=== PATIENT | male | born 1950 | race Caucasian/White ===

== ENCOUNTER 2017-05-01 09:20 | Inpatient (IN) | payer OTHER ==
[2017-05-01] VITALS (11 sets, daily range): BP systolic 114–172; BP diastolic 56–76; PULSE 60–71; RESP 16–20; TEMP 96.1–99.2; O2SAT 98–100
[~2017-05-01] VITALS: Ht 172.7 cm; Wt 100.0 kg
[2017-05-01] MEDS ORDERED: LANTINJ SQ (09:50)
[2017-05-01] MEDS ORDERED: HYDR50TA94 PO (09:50)
[2017-05-01] MEDS ORDERED: TERA2CAP3 PO (09:50)
[2017-05-01] MEDS ORDERED: SERT1POW3 PO (09:50)
[2017-05-01] MEDS ORDERED: GABA600T PO (09:50)
[2017-05-01] MEDS ORDERED: ALLE10TA PO (09:50)
[2017-05-01] MEDS ORDERED: CYAN100025 SL (09:50)
[2017-05-01] MEDS ORDERED: OMEP20TA PO (09:50)
[2017-05-01] MEDS ORDERED: NOVOINJ3 SQ (09:50)
[2017-05-01] MEDS ORDERED: SILD1POW4 PO (09:50)
[2017-05-01] MEDS ORDERED: SIRO1TAB4 PO (09:50)
[2017-05-01] MEDS ORDERED: LEVO137T2 PO (09:50)
[2017-05-01] MEDS ORDERED: [UNRECOGNIZED DRUG - CODE] PO (09:50)
[2017-05-01] MEDS ORDERED: AMLO5TAB2 PO (09:50)
[2017-05-01] MEDS ORDERED: DOCU100C PO (09:50)
[2017-05-01] MEDS ORDERED: TRAZ1TAB45 PO (09:50)
[2017-05-01] MEDS ORDERED: FLUT50SP EACH NARE (09:50)
[2017-05-01] MEDS ORDERED: LISI-515 PO (09:50)
[2017-05-01] MEDS ORDERED: SODIUM CHLOR 0.9% 1000 ML INJ 1,000 ML IV ONE (10:00)
[2017-05-01] MEDS ORDERED: SODIUM CHLORIDE 0.9% FLUSH 10 ML FLUSH IVF PRN (10:00)
--- NOTE | 2017-05-01 10:01 | PD ---
HPI Chief Complaint: Abnormal Results Time Seen by Provider: 09:42 Travel History International Travel<30 days: No Contact w/Intl Traveler<30days: No Traveled to known affect area: No History of Present Illness HPI Patient is a 66-year-old male with history of chronic alcoholism in remission, depression, SAADIA, history of staph aureus bacteremia, anxiety, Frannie hemorrhagic telangiectasia syndrome, iron deficiency anemia, essential hypertension, hypothyroidism, alcoholic cirrhosis, who sent to the emergency room by [facility] for an multiple complaints. As per patient, he has not been feeling well for the past few days, reports that he is feeling lethargic, dizzy and short of breath. Reports that he had lab work drawn today at the [facility] and was told to go to the emergency room as his hemoglobin was 6.7, hematocrit was 22.5. Patient reports that he has history of AVMs, reports that they need to be intermittently ligated, reports that he usually receives blood transfusions every 4-7 weeks. Patient denies any GI bleeding this time, any abdominal pain, nausea or vomiting. It's that he just has been feeling a little dizzy and short of breath. Reports that he has not having any chest pain this time. Reports that he has been having dyspnea on exertion. Patient is a diabetic currently taking insulin, Lantus and NovoLog, take his diabetic medications today, his blood sugar by EMS was 344. Of note, patient's hvac/r service technician t is Dr. Mcdaniels in [place], patient reports that he had a benign colonoscopy one month ago. Patient with no other complaints at this time. Patient reports that he has not had any alcohol in very long time. PFSH Past Medical History Anemia: Yes High Cholesterol: Yes Cerebrovascular Accident: Yes Diabetes: Yes Patient Takes Glucophage: No Hepatitis: Yes (HEP C) Hypertension: Yes Medical other: Yes (ALCOHOLISM) Thyroid Disease: Yes Tetanus Vaccination: > 5 Years Influenza Vaccination: Yes Past Surgical History Surgical History: No Previous Surgery Hysterectomy: Yes Social History Alcohol Use: No Tobacco Use: No Substance Use: No Allergies-Medications (Allergen,Severity, Reaction): Coded Allergies: Sulfa (Verified Allergy, Severe, FACIAL SWELLING, 05/01/17) Effexor (Verified Allergy, Intermediate, AMS, 05/01/17) HMG-CoA Reductase Inhibitors (Verified Allergy, Intermediate, MUSCLE RIGIDITY, 05/01/17) Reported Meds & Prescriptions Reported Meds & Active Scripts Active Reported Trazodone HCl 150 Mg Tablet 100 Mg PO HS Terazosin (Terazosin HCl) 2 Mg Cap 2 Mg PO HS Sucralfate 1 Pow Pow 500 Mg PO Sirolimus 2 Mg Tab 2 Mg PO DAILY Sildenafil Citrate (Sildenafil Citrate (Bulk)) 1 Pow Pow 100 Mg PO Sertraline HCl (Sertraline HCl (Bulk)) 1 Pow Pow 100 Mg PO DAILY PRN Omeprazole 20 Mg Tab 20 Mg PO DAILY Allergy Relief (Loratadine) 10 Mg Tab 10 Mg PO DAILY Lisinopril 20 Mg Tab 20 Mg PO DAILY Levothyroxine (Levothyroxine Sodium) 137 Mcg Tab 137 Mcg PO DAILY Lantus Solostar Pen Inj (Insulin Glargine) 300 Unit/3 Ml Pen 1 Units SQ Novolog Flexpen Inj (Insulin Aspart) 300 Unit/3 Ml Pen 1 Units SQ Hydroxyzine HCl 50 Mg Tab 50 Mg PO HS Gabapentin 600 Mg Tab 600 Mg PO TID Fluticasone Nasal [place] 50 Mcg/Act Naspr 50 Mcg EACH NARE BID 50 mcg/spray Docusate Sodium 100 Mg Cap 100 Mg PO BID PRN B-12 (Cyanocobalamin) 1,000 Mcg Subl 1,000 Mcg SL DAILY Amlodipine (Amlodipine Besylate) 5 Mg Tab 5 Mg PO DAILY Review of Systems General / Constitutional: No: Fever Eyes: No: Visual changes HENT: Positive: Lightheadedness, No: Headaches Cardiovascular: Positive: Dyspnea on exertion, No: Chest Pain or Discomfort Respiratory: Positive: Shortness of Breath Gastrointestinal: No: Abdominal Pain Genitourinary: No: Dysuria Musculoskeletal: No: Pain Skin: No Rash Neurologic: Positive: Weakness, Dizziness, Ataxia Psychiatric: No: Depression Endocrine: No: Polydipsia Hematologic/Lymphatic: No: Easy Bruising Physical Exam Narrative GENERAL: moderate distress SKIN: Focused skin assessment warm/dry. HEAD: Atraumatic. Normocephalic. EYES: Pupils equal and round. No scleral icterus. No injection or drainage. ENT: No nasal bleeding or discharge. Mucous membranes pink and moist. NECK: Trachea midline. No JVD. CARDIOVASCULAR: Regular rate and rhythm. No murmur appreciated. RESPIRATORY: No accessory muscle use. Clear to auscultation. Breath sounds equal bilaterally. GASTROINTESTINAL: Abdomen soft, non-tender, nondistended. Hepatic and splenic margins not palpable. MUSCULOSKELETAL: No obvious deformities. No clubbing. No cyanosis. No edema. NEUROLOGICAL: Awake and alert. No obvious cranial nerve deficits. Motor grossly within normal limits. Normal speech. PSYCHIATRIC: Appropriate mood and affect; insight and judgment normal. Data Data Last Documented VS Vital Signs Date Time Temp Pulse Resp B/P Pulse Ox O2 Delivery O2 Flow Rate FiO2 05/01/17 10:01 18 99 Room Air 05/01/17 09:35 71 139/67 05/01/17 09:28 99.2 Orders Electrocardiogram (05/01/17 09:50) B-Type Natriuretic Peptide (05/01/17 09:50) Ckmb (Isoenzyme) Profile (05/01/17 09:50) Complete Blood Count With Diff (05/01/17 09:50) Comprehensive Metabolic Panel (05/01/17 09:50) Magnesium (Mg) (05/01/17 09:50) Prothrombin Time / Inr (Pt) (05/01/17 09:50) Act Partial Throm Time (Ptt) (05/01/17 09:50) Troponin I (05/01/17 09:50) Lipase (05/01/17 09:50) Chest, Single Ap (05/01/17 09:50) Ecg Monitoring (05/01/17 09:50) Iv Access Insert/Monitor (05/01/17 09:50) Oximetry (05/01/17 09:50) Sodium Chloride 0.9% Flush (Ns Flush) (05/01/17 10:00) Type And Screen (05/01/17 09:50) Bedside Glucose CIELO.AC&HS (05/01/17 09:50) Sodium Chlor 0.9% 1000 Ml Inj (Ns 1000 M (05/01/17 10:00) Ct Brain W/O Iv Contrast(Rout) (05/01/17 09:50) MDM Medical Decision Making Medical Screen Exam Complete: Yes Emergency Medical Condition: Yes Interpretation(s) EKG at 1011: NSR at 64bpm, qt/qtc: 427/437, no acute st or t wave changes Vital Signs Date Time Temp Pulse Resp B/P Pulse Ox O2 Delivery O2 Flow Rate FiO2 05/01/17 09:35 71 18 139/67 99 Room Air 05/01/17 09:35 72 18 99 Room Air 05/01/17 09:28 99.2 71 18 139/67 100 Differential Diagnosis Symptomatic anemia, ACS, arrhythmia, GI bleed, electrolyte abnormality Narrative Course Patient is a 66-year-old male sent to the emergency room from the [facility] for treatment of low hemoglobin. Patient has not been feeling well for the past few days, he did have lab work performed at the [facility] and was found to have a hemoglobin of 6.7 hematocrit of 22.5. Reports that he received blood products every 4-7 weeks, reports history of avm's in the past. Patient denies any blood in his stools. Patient is here for blood transfusion. In addition, patient reports that he has not been feeling well, reports that he isn't feeling lethargic, dizzy and unstable on his feet, lab work including electrolytes ordered, and ct of the head was ordered to evaluate for possible intracranial pathology. Patient was placed on a groundwater monitoring technician upon arrival to the emergency room Annabelle Case DO May 01, 2017 10:01
[2017-05-01 10:18] LABS: AUTOMATED NEUTROPHIL # 1.7 TH/MM3 (1.8-7.7); BASOPHIL # 0.1 TH/MM3 (0-0.2); BASOPHIL % 2.1 % (0.0-2.0); EOSINOPHIL # 0.2 TH/MM3 (0-0.4); EOSINOPHIL % 5.5 % (0.0-4.0); LYMPH % 30.9 % (9.0-44.0); MEAN CELL VOLUME 62.4 FL (80.0-100.0); MEAN CORPUSCULAR HEMOGLOBIN 19.6 PG (27.0-34.0); MEAN CORPUSCULAR HGB CONC 31.4 % (32.0-36.0); MONO % 8.6 % (0.0-8.0); NEUT % 52.9 % (16.0-70.0); PLATELET COUNT 245 TH/MM3 (150-450); RED BLOOD COUNT 3.24 MIL/MM3 (4.50-5.90); RED CELL DISTRIBUTION WIDTH 22.3 % (11.6-17.2); WHITE BLOOD COUNT 3.2 TH/MM3 (4.0-11.0)
[2017-05-01 10:20] LABS: HEMO FLAGS DIFF FINAL
[2017-05-01 10:22] LABS: HEMATOCRIT 20.2 % (39.0-51.0)
[2017-05-01 10:29] LABS: APTT (PATIENT) 22.9 SEC (24.3-30.1); PROTHROMBIN TIME - PATIENT 10.6 SEC (9.8-11.6)
[2017-05-01] MEDS ORDERED: LORazepam 2 MG/ML VIAL IV PUSH ONE (10:30)
[2017-05-01] MEDS ORDERED: SODIUM CHLOR 0.9% 250 ML INJ 250 ML IV ONE (10:30)
[2017-05-01 10:45] LABS: ANION GAP 6 MEQ/L (5-15); BICARBONATE 27.5 MEQ/L (21.0-32.0); BLOOD UREA NITROGEN 18 MG/DL (7-18); CHLORIDE 102 MEQ/L (98-107); MAGNESIUM 1.5 MG/DL (1.5-2.5); POTASSIUM 4.1 MEQ/L (3.5-5.1); SODIUM (NA) 135 MEQ/L (136-145)
--- NOTE | 2017-05-01 10:52 | RADRPT ---
EXAM DATE/TIME: 05/01/2017 10:09 [facility] COMPARISON: No previous studies available for comparison. INDICATIONS : Short of breath. Disoriented and dizzy. MEDICAL HISTORY : Anemia. SURGICAL HISTORY : None. ENCOUNTER: Initial ACUITY: 4 - 6 days PAIN SCORE: 0/10 LOCATION: Bilateral chest FINDINGS: A single view of the chest demonstrates the lungs to be symmetrically aerated without evidence of mas s, infiltrate or effusion. The cardiomediastinal contours are unremarkable. Osseous structures are intact. CONCLUSION: 1. Negative portable chest. Newton Harvey MD on May 01, 2017 at 10:48 Board Certified Radiologist. This report was verified electronically.
[2017-05-01 11:20] LABS: AST (GOT) 16 U/L (15-37); GLOMERULAR FILTRATION RATE 85 ML/MIN (>89)
[2017-05-01 11:36] LABS: ALKALINE PHOSPHATASE 79 U/L (45-117); ALT (GPT) 21 U/L (12-78); CREATINE KINASE 187 U/L (39-308); TOTAL BILIRUBIN ADULT 0.1 MG/DL (0.2-1.0)
[2017-05-01 11:48] LABS: CKMB 46.2 NG/ML (0.5-3.6)
[2017-05-01] MEDS ORDERED: SODIUM CHLORIDE 0.9% FLUSH 10 ML FLUSH IV FLUSH PRN (12:30)
[2017-05-01] MEDS ORDERED: GLUCAGON 1 MG/ML VIAL OTHER PRN (12:30)
[2017-05-01] MEDS ORDERED: DEXTROSE 50% IN WATER 50 ML VIAL(D50) IV PRN (12:30)
[2017-05-01] MEDS ORDERED: RESP: ALBUTEROL 2.5 MG/IPRATROPIUM 0.5 MG NEB (PRN) NEB (12:30)
[2017-05-01] MEDS ORDERED: ENALAPRILAT 1.25 MG/ML VIAL IV PUSH PRN (12:30)
[2017-05-01] MEDS ORDERED: ONDANSETRON HCL 4 MG/2 ML VIAL IV PRN (12:30)
[2017-05-01] MEDS: PANTOPRAZOLE SODIUM 40 MG VIAL IV PUSH SCH (12:35)
--- NOTE | 2017-05-01 12:52 | RADRPT ---
EXAM DATE/TIME: 05/01/2017 12:36 [facility] COMPARISON: No previous studies available for comparison. INDICATIONS : Shortness of breath, lethargy, dizziness. RADIATION DOSE: 56.35 CTDIvol (mGy) MEDICAL HISTORY : Hypertension. Cerebrovascular disease. Diabetes mellitus type 2.Hepatitis C SURGICAL HISTORY : None. ENCOUNTER: Initial ACUITY: 1 day PAIN SCALE: 0/10 LOCATION: cranial TECHNIQUE: Multiple contiguous axial images were obtained of the head. Using automated exposure control and adj ustment of the mA and/or kV according to patient size, radiation dose was kept as low as reasonably a chievable to obtain optimal diagnostic quality images. FINDINGS: CEREBRUM: The ventricles are normal for age. There are areas of encephalomalacia at the posterior right frontal and right parietal lobes. No evidence of midline shift, mass lesion, hemorrhage or acute infarction. No extra-axial fluid collections are seen. POSTERIOR FOSSA: The cerebellum and brainstem are intact. The 4th ventricle is midline. The cerebellopontine angle i s unremarkable. EXTRACRANIAL: The visualized portion of the orbits is intact. There is bilateral maxillary sinus disease. There is scattered ethmoid sinus disease. There is mucosal thickening at the left sphenoid sinus. SKULL: The calvaria is intact. No evidence of skull fracture. CONCLUSION: 1. No acute intracranial abnormality. 2. Areas of encephalomalacia from prior insults at the right frontal and parietal lobes. 3. Sinus disease. Jenaro Schroeder MD on May 01, 2017 at 12:49 Board Certified Radiologist. This report was verified electronically.
--- NOTE | 2017-05-01 13:04 | PD.CONS ---
HPI History of Present Illness This is a 66 year old who presented to the ER with anemia. He recently had labwork and they sent him to ER. He had been feeling poorly, altered balance, somnolence, fatigue for the last 4 days. This has happened 3 or 4 times before. He admits to abdominal pain for the last 4 days, in the LLQ & RLQ. He also admits diarrhea for a couple days 2 x day that was dark but not black. Denies dark tarry stool but per EMR was found on rectal exam to have melena and heme pos stool. Has hx AVMs. Says he has had to have many blood transfusions in past, 22 units in the last year. NO n/v. NO weight loss. Past heavy drinker , has not drank in 2 years. (Aleisha Currie) PFSH Past Medical History DM HTN hx sepsis Past Surgical History port placement port removal (Aleisha Currie) Coded Allergies: Sulfa (Verified Allergy, Severe, FACIAL SWELLING, 05/01/17) Effexor (Verified Allergy, Intermediate, AMS, 05/01/17) HMG-CoA Reductase Inhibitors (Verified Allergy, Intermediate, MUSCLE RIGIDITY, 05/01/17) Family History heart valve problems - father Social History former heavy drinker, no ETOH 2 y no tobacco, illicit drugs (Aleisha Currie) Review of Systems Constitutional: DENIES: Fever Eyes: DENIES: Blurred vision Ears, nose, mouth, throat: DENIES: Hearing loss Respiratory: DENIES: Cough Cardiovascular: DENIES: Chest pain Gastrointestinal: COMPLAINS OF: Abdominal pain, Diarrhea, DENIES: Black stools , Bloody stools, Constipation, Nausea, Vomiting, Anorexia, Hematemesis Genitourinary: DENIES: Hematuria Musculoskeletal: DENIES: Muscle aches Integumentary: DENIES: Rash Hematologic/lymphatic: DENIES: Bruising Neurologic: COMPLAINS OF: Abnormal gait (last 4 days, weakness) Psychiatric: COMPLAINS OF: Confusion (last 4 days) (Aleisha Currie) GI Exam Vitals I&O Vital Signs Date Time Temp Pulse Resp B/P Pulse Ox O2 Delivery O2 Flow Rate FiO2 05/01/17 11:46 64 16 142/62 100 05/01/17 10:36 69 18 154/67 99 Room Air 05/01/17 10:01 18 99 Room Air 05/01/17 09:35 71 18 139/67 99 Room Air 05/01/17 09:35 72 18 99 Room Air 05/01/17 09:28 99.2 71 18 139/67 100 Imaging Last Impressions Head CT 05/01/17 0950 Signed Impressions: Service Date/Time: Monday, May 01, 2017 12:36 - CONCLUSION: 1. No acute intracranial abnormality. 2. Areas of encephalomalacia from prior insults at the right frontal and parietal lobes. 3. Sinus disease. Jenaro Schroeder MD Chest X-Ray 05/01/1750 Signed Impressions: Service Date/Time: Monday, May 01, 2017 10:09 - CONCLUSION: 1. Negative portable chest. Newton Harvey MD Laboratory Test 05/01/17 05/01/17 05/01/17 10:00 10:24 11:09 White Blood Count 3.2 TH/MM3 Red Blood Count 3.24 MIL/MM3 Hemoglobin 6.4 GM/DL Hematocrit 20.2 % Mean Corpuscular Volume 62.4 FL Mean Corpuscular Hemoglobin 19.6 PG Mean Corpuscular Hemoglobin 31.4 % Concent Red Cell Distribution Width 22.3 % Platelet Count 245 TH/MM3 Mean Platelet Volume 8.4 FL Neutrophils (%) (Auto) 52.9 % Lymphocytes (%) (Auto) 30.9 % Monocytes (%) (Auto) 8.6 % Eosinophils (%) (Auto) 5.5 % Basophils (%) (Auto) 2.1 % Neutrophils # (Auto) 1.7 TH/MM3 Lymphocytes # (Auto) 1.0 TH/MM3 Monocytes # (Auto) 0.3 TH/MM3 Eosinophils # (Auto) 0.2 TH/MM3 Basophils # (Auto) 0.1 TH/MM3 CBC Comment DIFF FINAL Differential Comment Prothrombin Time 10.6 SEC Prothromb Time International 1.0 RATIO Ratio Activated Partial 22.9 SEC Thromboplast Time Sodium Level 135 MEQ/L Potassium Level 4.1 MEQ/L Chloride Level 102 MEQ/L Carbon Dioxide Level 27.5 MEQ/L Anion Gap 6 MEQ/L Blood Urea Nitrogen 18 MG/DL Creatinine 0.90 MG/DL Estimat Glomerular Filtration 85 ML/MIN Rate Random Glucose 180 MG/DL Calcium Level 8.5 MG/DL Magnesium Level 1.5 MG/DL Total Bilirubin 0.1 MG/DL Aspartate Amino Transf 16 U/L (AST/SGOT) Alanine Aminotransferase 21 U/L (ALT/SGPT) Alkaline Phosphatase 79 U/L Total Creatine Kinase 187 U/L Creatine Kinase MB 46.2 NG/ML Troponin I LESS THAN 0.02 NG/ML B-Type Natriuretic Peptide 57 PG/ML Total Protein 6.4 GM/DL Albumin 3.0 GM/DL Lipase 134 U/L Blood Type B POSITIVE B POSITIVE Antibody Screen NEGATIVE Blood Bank Comment Crossmatch Leukocyte-Reduced Red Blood Cells Physical Examination HEENT: EOMI; normocephalic; atraumatic; no jaundice. CHEST: CTA CARDIAC: RRR ABDOMEN: Soft, protuberant, tympanitic, diffuse TTP; no hepatosplenomegaly; bowel sounds are present in all four quadrants. EXTREMITIES: No clubbing, cyanosis, or edema. SKIN: generalized pallor; no rash; no jaundice. 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 Had colonoscopy 6 weeks ago, normal per pt. Hx AVMs, multiple blood transfusions, ETOH abuse. will do EGD - abdominal pain - onset 4 day ago, pt c/o pain in all 4 quadrants and had TTP diffusely. unclear etiology, will get CT abd PLAN - EGD in am - obtain consents - NPO for now - CT abd - monitor HH - transfuse prn - further recommendations to follow based on results above This pt seen by myself and Dr Curry and this note is written on his behalf ( Aleisha Currie) Physician Comments As above, recurrent GI bleeding secondary to AVM's, will check CT finding and possible EGD, if all negative, double balloon endoscopy. Will follow up with you. (Patricia Curry MD) Aleisha Currie May 01, 2017 13:04 Patricia Curry MD May 01, 2017 14:14
--- NOTE | 2017-05-01 13:30 | HHI.HP ---
HPI [facility] Primary Care Physician No Primary Care Physician Admission Diagnosis Symptomatic anemia Diagnoses: (1) Symptomatic anemia (2) Microcytic hypochromic anemia (3) Anemia due to blood loss (4) Diabetes mellitus, type 2 (5) Ataxia Chief Complaint: abnormal labs Travel History International Travel<30 Days: No Contact w/Intl Traveler <30 Da: No Traveled to Known Affected Are: No History of Present Illness 66-year-old male with a history of diabetes type 2, hepatitis C, anemia requiring frequent blood transfusions was sent to the ED by [facility] PCP [facility] the [facility] for evaluation of abnormal lab including H&H 6.7/.5. He states, over the past 4 days he has been feeling fatigued lately with increasing somnolence, lethargy and very poor balance. He currently admits of diarrhea 2 days described as dark and patient was found to have melena on Hemoccult test in the ED. Patient states he usually gets blood transfusion every 7 weeks. He states , he had a recent benign colonoscopy. He denies any hematuria, hemoptysis or hematochezia. Although patient complains of abdominal pain and he denies any chest pain or significant shortness of breath. Review of Systems Except as stated in HPI: all other systems reviewed are Neg Past Family Social History Past Medical History Diabetes type 2 Hypertension Hepatitis C Hypothyroidism Diabetic neuropathy Anxiety/depression Past Surgical History Port placement and removal Reported Medications Trazodone HCl 150 Mg Tablet 100 Mg PO HS Terazosin (Terazosin HCl) 2 Mg Cap 2 Mg PO HS Sucralfate 1 Pow Pow 500 Mg PO Sirolimus 2 Mg Tab 2 Mg PO DAILY Sildenafil Citrate (Sildenafil Citrate (Bulk)) 1 Pow Pow 100 Mg PO Sertraline HCl (Sertraline HCl (Bulk)) 1 Pow Pow 100 Mg PO DAILY PRN Omeprazole 20 Mg Tab 20 Mg PO DAILY Allergy Relief (Loratadine) 10 Mg Tab 10 Mg PO DAILY Lisinopril 20 Mg Tab 20 Mg PO DAILY Levothyroxine (Levothyroxine Sodium) 137 Mcg Tab 137 Mcg PO DAILY Lantus Solostar Pen Inj (Insulin Glargine) 300 Unit/3 Ml Pen 1 Units SQ Novolog Flexpen Inj (Insulin Aspart) 300 Unit/3 Ml Pen 1 Units SQ Hydroxyzine HCl 50 Mg Tab 50 Mg PO HS Gabapentin 600 Mg Tab 600 Mg PO TID Fluticasone Nasal [place] 50 Mcg/Act Naspr 50 Mcg EACH NARE BID 50 mcg/spray Docusate Sodium 100 Mg Cap 100 Mg PO BID PRN B-12 (Cyanocobalamin) 1,000 Mcg Subl 1,000 Mcg SL DAILY Amlodipine (Amlodipine Besylate) 5 Mg Tab 5 Mg PO DAILY Allergies: Coded Allergies: Sulfa (Verified Allergy, Severe, FACIAL SWELLING, 05/01/17) Effexor (Verified Allergy, Intermediate, AMS, 05/01/17) HMG-CoA Reductase Inhibitors (Verified Allergy, Intermediate, MUSCLE RIGIDITY, 05/01/17) Family History heart valve problems - father Maternal grandma had history of cancer Social History former heavy drinker, no ETOH 2 y no tobacco, illicit drugs Physical Exam Vital Signs Vital Signs Date Time Temp Pulse Resp B/P Pulse Ox O2 Delivery O2 Flow Rate FiO2 05/01/17 13:26 97.9 60 18 141/63 98 Room Air 05/01/17 13:26 97.9 60 20 141/63 98 Room Air 05/01/17 11:46 64 16 142/62 100 05/01/17 10:36 69 18 154/67 99 Room Air 05/01/17 10:01 18 99 Room Air 05/01/17 09:35 71 18 139/67 99 Room Air 05/01/17 09:35 72 18 99 Room Air 05/01/17 09:28 99.2 71 18 139/67 100 Physical Exam GENERAL: This is a well-nourished, well-developed patient, in no apparent distress. SKIN: No rashes, ecchymoses or lesions. Cool and dry. HEAD: Atraumatic. Normocephalic. No temporal or scalp tenderness. EYES: Pupils equal round and reactive. Extraocular motions intact. No scleral icterus. No injection or drainage. ENT: Nose without bleeding, purulent drainage or septal hematoma. Throat without erythema, tonsillar hypertrophy or exudate. Uvula midline. Airway patent. NECK: Trachea midline. No JVD or lymphadenopathy. Supple, nontender, no meningeal signs. CARDIOVASCULAR: Regular rate and rhythm without murmurs, gallops, or rubs. RESPIRATORY: Clear to auscultation. Breath sounds equal bilaterally. No wheezes , rales, or rhonchi. GASTROINTESTINAL: Abdomen soft, non-tender, nondistended. No hepato-splenomegaly , or palpable masses. No guarding. MUSCULOSKELETAL: Extremities without clubbing, cyanosis, or edema. No joint tenderness, effusion, or edema noted. No calf tenderness. Negative Homans sign bilaterally. NEUROLOGICAL: Awake and alert. Cranial nerves II through XII intact. Motor and sensory grossly within normal limits. Five out of 5 muscle strength in all muscle groups. Normal speech. Laboratory Laboratory Tests Test 05/01/17 05/01/17 05/01/17 10:00 10:24 11:09 White Blood Count 3.2 Red Blood Count 3.24 Hemoglobin 6.4 Hematocrit 20.2 Mean Corpuscular Volume 62.4 Mean Corpuscular Hemoglobin 19.6 Mean Corpuscular Hemoglobin 31.4 Concent Red Cell Distribution Width 22.3 Platelet Count 245 Mean Platelet Volume 8.4 Neutrophils (%) (Auto) 52.9 Lymphocytes (%) (Auto) 30.9 Monocytes (%) (Auto) 8.6 Eosinophils (%) (Auto) 5.5 Basophils (%) (Auto) 2.1 Neutrophils # (Auto) 1.7 Lymphocytes # (Auto) 1.0 Monocytes # (Auto) 0.3 Eosinophils # (Auto) 0.2 Basophils # (Auto) 0.1 CBC Comment DIFF FINAL Differential Comment Prothrombin Time 10.6 Prothromb Time International 1.0 Ratio Activated Partial 22.9 Thromboplast Time Sodium Level 135 Potassium Level 4.1 Chloride Level 102 Carbon Dioxide Level 27.5 Anion Gap 6 Blood Urea Nitrogen 18 Creatinine 0.90 Estimat Glomerular Filtration 85 Rate Random Glucose 180 Calcium Level 8.5 Magnesium Level 1.5 Total Bilirubin 0.1 Aspartate Amino Transf 16 (AST/SGOT) Alanine Aminotransferase 21 (ALT/SGPT) Alkaline Phosphatase 79 Total Creatine Kinase 187 Creatine Kinase MB 46.2 Troponin I LESS THAN 0.02 B-Type Natriuretic Peptide 57 Total Protein 6.4 Albumin 3.0 Lipase 134 Blood Type B POSITIVE B POSITIVE Antibody Screen NEGATIVE Blood Bank Comment Crossmatch Leukocyte-Reduced Red Blood Cells Result Diagram: 05/01/17 1000 05/01/17 1000 Assessment and Plan Problem List: (1) Symptomatic anemia ICD Code: D64.9 Status: Acute (2) Microcytic hypochromic anemia ICD Code: D50.9 Status: Acute (3) Anemia due to blood loss ICD Code: D50.0 Status: Acute (4) Ataxia ICD Code: R27.0 Status: Acute Assessment and Plan 66-year-old man with Symptomatic anemia Microcytic hypochromic anemia Anemia due to blood loss Transfuse 2 units packed red blood cell and serial H&H check Consult gastroenterology for evaluation for possible panendoscopy Start PPI 40 mg IV every 12 hours Check iron study and treat accordingly Ataxia Head CT pending PT consult Diabetes type 2 Start insulin sliding scale medium and hold home medications Hypertension Resume outpatient medications including Norvasc Hypothyroidism, anxiety/depression/diabetic neuropathy and other chronic medical conditions Resume outpatient medications DVT prophylaxis: Chemical anti-prophylactic contraindicated due to GI bleed, bilateral SCDs GI prophylaxis: PPI Code Status Full code Discussed Condition With Patient, ED physician Physician Certification 2 Midnight Certification Type: Admission for Inpatient Services Order for Inpatient Services The services are ordered in accordance with Medicare regulations or non- Medicare payer requirements, as applicable. In the case of services not specified as inpatient-only, they are appropriately provided as inpatient services in accordance with the 2-midnight benchmark. Estimated LOS (days): 2 days is the estimated time the patient will need to remain in the hospital, assuming treatment plan goals are met and no additional complications. Post-Hospital Plan: Not yet determined Dillon Freeman MD May 01, 2017 13:30
[2017-05-01] MEDS ORDERED: DIATRIZOATE MEGLUM/DIATRIZOATE SOD 9 ML CUP PO ONE (14:00)
[2017-05-01 15:29] LABS: TRANSFERRIN IRON PROFILE 229 MG/DL (200-360)
[2017-05-01] MEDS ORDERED: IOHEXOL 350 MG/ML 10 ML VIAL (for RAD DIAG) IV ONE (15:37)
--- NOTE | 2017-05-01 17:07 | RADRPT ---
EXAM DATE/TIME: 05/01/2017 15:32 [place] COMPARISON: No previous studies available for comparison. INDICATIONS : Patient complains of lower abdominal pain. IV CONTRAST: 94 cc Omnipaque 350 (iohexol) IV ORAL CONTRAST: No oral contrast ingested. RADIATION DOSE: 10.83 CTDIvol (mGy) MEDICAL HISTORY : Cardiovascular disease. Hypertension. Diabetes mellitus type 1.HEP C SURGICAL HISTORY : None. ENCOUNTER: Initial ACUITY: 1 day PAIN SCALE: 7/10 LOCATION: Bilateral lower quadrant TECHNIQUE: Volumetric scanning of the abdomen and pelvis was performed. Using automated exposure control and ad justment of the mA and/or kV according to patient size, radiation dose was kept as low as reasonably achievable to obtain optimal diagnostic quality images. FINDINGS: LOWER LUNGS: Mild patchy opacity at the right lung base, likely representing atelectasis or minimal inflammatory c hange. LIVER: Linear hypodensities in the left lobe suggesting mild intrahepatic biliary ductal dilatation or perip ortal edema. Mild focal nodularity of the liver capsule indicating possible early findings of cirrhos is. No focal mass identified. SPLEEN: Normal size without lesion. PANCREAS: Within normal limits. KIDNEYS: Normal in size and shape. There is no mass, stone or hydronephrosis. ADRENAL GLANDS: Within normal limits. VASCULAR: Diffuse arterial calcification. Aortic diameter within normal limits. BOWEL/MESENTERY: Scattered colonic diverticula. No inflammatory changes to suggest acute diverticulitis. Appendix is w ithin normal limits. No evidence of bowel dilatation. No free air or free fluid. ABDOMINAL WALL: Within normal limits. RETROPERITONEUM: There is no lymphadenopathy. BLADDER: Moderately distended. REPRODUCTIVE: Within normal limits. INGUINAL: There is no lymphadenopathy or hernia. MUSCULOSKELETAL: Degenerative findings of the lower lumbar spine. CONCLUSION: 1. Colonic diverticulosis. No evidence of acute diverticulitis. 2. Moderately distended urinary bladder. 3. Appendix within normal limits. 4. Possible early findings of cirrhosis. 5. Mild left lobe intrahepatic biliary ductal dilatation versus periportal edema. Surinder Cisneros MD on May 01, 2017 at 16:58 Board Certified Radiologist. This report was verified electronically.
[2017-05-01] MEDS: INSULIN ASPART SUPPLEMENTAL SCALE SQ SCH ×2 (17:44→21:33)
[2017-05-01 19:47] LABS: HEMATOCRIT 26.3 % (39.0-51.0)
[2017-05-01 19:50] LABS: REVIEW FLAG FINAL
[2017-05-01] MEDS: MORPHINE SULFATE 4 MG/ML INJ IV PUSH PRN (21:32)
[2017-05-01] MEDS: SODIUM CHLORIDE 0.9% FLUSH 10 ML FLUSH IV FLUSH SCH (21:33)
[2017-05-02] VITALS (9 sets, daily range): BP systolic 128–180; BP diastolic 60–77; PULSE 60–87; RESP 18–19; TEMP 96.7–97.2; O2SAT 93–99
[2017-05-02] MEDS: PANTOPRAZOLE SODIUM 40 MG VIAL IV PUSH SCH ×2 (01:12→13:38)
[2017-05-02] MEDS: MORPHINE SULFATE 4 MG/ML INJ IV PUSH PRN ×4 (03:38→23:06)
[2017-05-02] MEDS: LEVOTHYROXINE SODIUM 112 MCG TAB PO SCH (05:24)
[2017-05-02] MEDS: INSULIN ASPART SUPPLEMENTAL SCALE SQ SCH ×4 (05:24→21:00)
[2017-05-02] MEDS: LEVOTHYROXINE SODIUM 25 MCG TAB PO SCH (05:24)
[2017-05-02] MEDS ORDERED: SODIUM CHLORID 0.9% 500 ML IV PRN (06:15)
[2017-05-02] MEDS ORDERED: POVIDONE IODINE 5% (ANTISEPSIS KIT) 4 APPLICATIONS EACH NARE PRN (06:15)
[2017-05-02] MEDS ORDERED: LACTATED RINGER'S 1000 ML IV PRN (06:15)
[2017-05-02] MEDS ORDERED: CHLORHEXIDINE GLUCONATE 2 % 1 PACK (2 CLOTHS) TOPICAL PRN (06:15)
[2017-05-02 08:12] LABS: HEMATOCRIT 26.8 % (39.0-51.0)
[2017-05-02 08:27] LABS: REVIEW FLAG FINAL
[2017-05-02] MEDS: SODIUM CHLORIDE 0.9% FLUSH 10 ML FLUSH IV FLUSH SCH ×2 (08:35→23:05)
[2017-05-02] MEDS ORDERED: amLODIPine BESYLATE 5 MG TAB PO SCH (09:00)
[2017-05-02] MEDS ORDERED: PROPOFOL 200 MG/20 ML AMP IV ONE (11:05)
--- NOTE | 2017-05-02 11:31 | GIPROC ---
[facility] [address] [facility]. [facility], [address] EGD PROCEDURE REPORT EXAM DATE: 05/02/2017 PATIENT NAME: Hipolito Gonzalez MR #: [id number] BIRTHDATE: 1950 ATTENDING: Patricia Curry MD ORDER #: [id number] PHYSICAL SCIENCES INSTRUCTOR: Feliciano Figueredo and Vandana Sharma STATUS: inpatient INDICATIONS: The patient is a 66 yr old male here for an EGD due to anemia PROCEDURE PERFORMED: EGD w/ ablation MEDICATIONS: None and Per Anesthesia. TOPICAL ANESTHETIC: none CONSENT: The patient understands the risks and benefits of the procedure and understands that these risks include, but are not limited to: sedation, allergic reaction, infection, perforation and/or bleeding. Alternative means of evaluation and treatment include, among others: physical exam, x-rays, and/or surgical intervention. The patient elects to proceed with this endoscopic procedure. medical equipment was checked for proper function. Hand hygiene and appropriate measures for infection prevention was taken. After the risks, benefits and alternatives of the procedure were thoroughly explained, Informed consent was verified, confirmed and timeout was successfully executed by the treatment team. The patient was anesthetized with topical anesthesia and the Pentax EG-[id number] and [id number] endoscope was introduced through the mouth and advanced to the second portion of the duodenum. Retroflexion was performed and was normal The gastroscope was then slowly withdrawn and removed. ESOPHAGUS: The esophagus was otherwise normal. 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 Argon plasma coagulation was applied to the sites. With complete hemostasis achieved. DUODENUM: An innumerable number of small medium sized round arteriovenous malformations were found in the duodenal bulb, 2nd part duodenum, and 3rd part duodenum. Argon plasma coagulation was applied to the sites. With complete hemostasis achieved. ADVERSE EVENTS: There were no complications. IMPRESSIONS: 1. The esophagus was otherwise normal 2. 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 Innumerable number of small medium sized arteriovenous malformations were found in the duodenal bulb, 2nd part duodenum, and 3rd part duodenum; Argon plasma coagulation was applied to the sites; with complete hemostasis achieved 4. Retroflexion was performed and was normal RECOMMENDATIONS: Hematocrit PATIENT CONDITION: stable DISPOSITION: Observation REPEAT EXAM: Return as needed for EGD Patricia Curry MD eSigned: Patricia Curry MD 05/02/2017 11:30 AM cc: PATIENT NAME: Hipolito Gonzalez MR#: [id number]
--- NOTE | 2017-05-02 12:08 | EKG ---
Date Performed: 05/01/2017 Time Performed: 10:11:15 PTAGE: 66 years EKG: Sinus rhythm NORMAL ECG NO PREVIOUS TRACING DOCTOR: Elian Farmer Interpretating Date/Time 05/02/2017 12:06:49
[2017-05-02] MEDS ORDERED: DO NOT ADM ANY ANTICOAGULANT DRUGS PRN (13:00)
[2017-05-02] MEDS ORDERED: amLODIPine BESYLATE 5 MG TAB PO ONE (13:30)
[2017-05-02] MEDS ORDERED: GABAPENTIN 300 MG CAP PO ONE (13:45)
--- NOTE | 2017-05-02 16:02 | HHI.PR ---
Subjective Remarks feeling ok, had EGD this afternoon. tells me that he has neuropathy that's why he was requesting his gabapentin to be restarted denies any CP/SOB/N/V Objective Vitals Vital Signs Date Time Temp Pulse Resp B/P Pulse Ox O2 Delivery O2 Flow Rate FiO2 05/02/17 14:00 18 05/02/17 13:35 160/70 05/02/17 12:39 97.0 68 19 180/77 99 05/02/17 11:50 87 05/02/17 11:49 98.0 67 18 115/64 96 05/02/17 11:38 65 18 103/56 96 05/02/17 11:23 97.8 74 18 105/55 93 05/02/17 10:35 96.7 60 19 167/76 99 05/02/17 08:47 96.7 60 19 167/76 99 05/02/17 00:00 97.0 63 18 143/73 97 05/01/17 20:00 96.8 61 20 172/70 98 05/01/17 16:48 96.1 61 17 158/70 99 I/O 05/01/17 05/01/17 05/01/17 05/02/17 05/02/17 05/02/17 07:00 15:00 23:00 07:00 15:00 23:00 Output Total 600 ml 2000 ml 700 ml Balance -600 ml -2000 ml -700 ml Output Urine Total 600 ml 2000 ml 700 ml # Voids 1 1 3 Result Diagram: 05/02/17 0748 05/01/17 1000 Imaging Last Impressions Head CT 05/01/17 0950 Signed Impressions: Service Date/Time: Monday, May 01, 2017 12:36 - CONCLUSION: 1. No acute intracranial abnormality. 2. Areas of encephalomalacia from prior insults at the right frontal and parietal lobes. 3. Sinus disease. Jenaro Schroeder MD Chest X-Ray 05/01/17 0950 Signed Impressions: Service Date/Time: Monday, May 01, 2017 10:09 - CONCLUSION: 1. Negative portable chest. Newton Harvey MD Abdomen/Pelvis CT 05/01/17 0000 Signed Impressions: Service Date/Time: Monday, May 01, 2017 15:32 - CONCLUSION: 1. Colonic diverticulosis. No evidence of acute diverticulitis. 2. Moderately distended urinary bladder. 3. Appendix within normal limits. 4. Possible early findings of cirrhosis. 5. Mild left lobe intrahepatic biliary ductal dilatation versus periportal edema. Surinder Cisneros MD Objective Remarks GENERAL: This is a well-nourished, well-developed patient, in no apparent distress. CARDIOVASCULAR: Regular rate and rhythm without murmurs RESPIRATORY: Clear to auscultation. Breath sounds equal bilaterally. No wheezes GASTROINTESTINAL: Abdomen soft, non-tender, nondistended. some discomfort w deep palpation MUSCULOSKELETAL: Extremities without edema. NEUROLOGICAL: Awake and alert. Cranial nerves II through XII intact. Motor and sensory grossly within normal limits. Five out of 5 muscle strength in all muscle groups. Normal speech. 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 on PPI 40 mg IV every 12 hours iron level and iron sat low. TIBC normal. Ataxia Head CT shows no acute anomaly. PT recommends home health PT Diabetes type 2 on insulin sliding scale medium and hold home medications Hypertension on outpatient medications including Norvasc Hypothyroidism, anxiety/depression/diabetic neuropathy and other chronic medical conditions on outpatient medications DVT prophylaxis: Chemical anti-prophylactic contraindicated due to GI bleed, bilateral SCDs GI prophylaxis: PPI Discharge Planning anticipate d/c tomorrow if Hb stable and cleared by Alyssa Smith MD May 02, 2017 16:02
[2017-05-02] MEDS: GABAPENTIN 300 MG CAP PO SCH (17:40)
[2017-05-02 20:15] LABS: HEMATOCRIT 26.3 % (39.0-51.0)
[2017-05-02 20:17] LABS: REVIEW FLAG FINAL
[2017-05-03] VITALS (7 sets, daily range): BP systolic 105–146; BP diastolic 50–66; PULSE 64–102; RESP 17–18; TEMP 97.6–99.2; O2SAT 95–98
[2017-05-03] MEDS ORDERED: traZODone HCL 100 MG TAB PO ONE (00:15)
[2017-05-03] MEDS: PANTOPRAZOLE SODIUM 40 MG VIAL IV PUSH SCH ×2 (00:16→12:28)
[2017-05-03] MEDS: MORPHINE SULFATE 4 MG/ML INJ IV PUSH PRN ×3 (05:40→20:45)
[2017-05-03] MEDS: LEVOTHYROXINE SODIUM 112 MCG TAB PO SCH (06:00)
[2017-05-03] MEDS: LEVOTHYROXINE SODIUM 25 MCG TAB PO SCH (06:00)
[2017-05-03] MEDS: INSULIN ASPART SUPPLEMENTAL SCALE SQ SCH ×4 (06:36→20:50)
[2017-05-03] MEDS: GABAPENTIN 300 MG CAP PO SCH ×3 (08:30→17:31)
[2017-05-03] MEDS: SODIUM CHLORIDE 0.9% FLUSH 10 ML FLUSH IV FLUSH SCH ×2 (08:30→20:45)
[2017-05-03] MEDS ORDERED: ACETAMINOPHEN/HYDROcodone 325 MG/5 MG TAB PO PRN (15:00)
[2017-05-03] MEDS ORDERED: DOCUSATE SODIUM 50 MG/SENNA 8.6 MG TAB PO PRN (15:00)
--- NOTE | 2017-05-03 15:02 | HHI.PR ---
Subjective Remarks pt complains of epigastric pain since procedure. rates it a 7/10 relieve w morphine. denies any nausea or vomiting, no new bleeding episode. Objective Vitals Vital Signs Date Time Temp Pulse Resp B/P Pulse Ox O2 Delivery O2 Flow Rate FiO2 05/03/17 09:53 99.0 75 17 144/66 98 05/03/17 04:00 99.0 71 18 135/61 97 05/03/17 00:00 99.2 102 18 146/63 96 05/02/17 23:10 96.7 69 18 128/60 97 05/02/17 20:02 93 21 05/02/17 16:17 97.2 I/O 05/02/17 05/02/17 05/02/17 05/03/17 05/03/17 05/03/17 07:00 15:00 23:00 07:00 15:00 23:00 Intake Total 240 ml Output Total 700 ml 450 ml 650 ml Balance -700 ml -210 ml -650 ml Intake Oral 240 ml Output Urine Total 700 ml 450 ml 650 ml # Voids 3 Result Diagram: 05/02/17 1903 05/01/17 1000 Imaging Last Impressions Head CT 05/01/17 0950 Signed Impressions: Service Date/Time: Monday, May 01, 2017 12:36 - CONCLUSION: 1. No acute intracranial abnormality. 2. Areas of encephalomalacia from prior insults at the right frontal and parietal lobes. 3. Sinus disease. Jenaro Schroeder MD Chest X-Ray 05/01/17 0950 Signed Impressions: Service Date/Time: Monday, May 01, 2017 10:09 - CONCLUSION: 1. Negative portable chest. Newton Harvey MD Abdomen/Pelvis CT 05/01/17 0000 Signed Impressions: Service Date/Time: Monday, May 01, 2017 15:32 - CONCLUSION: 1. Colonic diverticulosis. No evidence of acute diverticulitis. 2. Moderately distended urinary bladder. 3. Appendix within normal limits. 4. Possible early findings of cirrhosis. 5. Mild left lobe intrahepatic biliary ductal dilatation versus periportal edema. Surinder Cisneros MD Objective Remarks GENERAL: This is a well-nourished, well-developed patient, in no apparent distress. CARDIOVASCULAR: Regular rate and rhythm without murmurs RESPIRATORY: Clear to auscultation. Breath sounds equal bilaterally. No wheezes GASTROINTESTINAL: Abdomen soft, tender to palpation in epigastric region but no rebound or guarding, nondistended. MUSCULOSKELETAL: Extremities without edema. NEUROLOGICAL: Awake and alert. Cranial nerves II through XII intact. Normal speech. 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 on PPI 40 mg IV every 12 hours iron level and iron sat low. TIBC normal. pt complaining of epigastric pain, most likely post procedure, give norco prn and switch morphine to prn breakthrough Ataxia Head CT shows no acute anomaly. PT recommends home health PT Diabetes type 2 on insulin sliding scale medium and hold home medications Hypertension on outpatient medications including Norvasc Hypothyroidism, anxiety/depression/diabetic neuropathy and other chronic medical conditions on outpatient medications DVT prophylaxis: Chemical anti-prophylactic contraindicated due to GI bleed, bilateral SCDs GI prophylaxis: PPI Discharge Planning anticipate d/c tomorrow if Hb stable and abdominal pain improved and controlled on po pain meds. also awaiting final recs from Alyssa Smith MD May 03, 2017 15:02
[2017-05-03] MEDS: ACETAMINOPHEN/HYDROcodone 325 MG/7.5 MG TAB PO PRN (17:45)
[2017-05-03] MEDS: traZODone HCL 100 MG TAB PO SCH (20:45)
[2017-05-03] MEDS: TERAZOSIN HCL 1 MG CAP PO SCH (20:46)
[2017-05-03] MEDS: hydrOXYzine HCL 50 MG TAB PO SCH (20:46)
[2017-05-04] VITALS (9 sets, daily range): BP systolic 125–156; BP diastolic 57–74; PULSE 61–88; RESP 17–18; TEMP 95.6–98.9; O2SAT 92–99
[2017-05-04] MEDS: PANTOPRAZOLE SODIUM 40 MG VIAL IV PUSH SCH ×3 (01:39→23:33)
[2017-05-04] MEDS: ACETAMINOPHEN/HYDROcodone 325 MG/7.5 MG TAB PO PRN ×4 (02:15→21:00)
[2017-05-04] MEDS: LEVOTHYROXINE SODIUM 25 MCG TAB PO SCH (05:39)
[2017-05-04] MEDS: LEVOTHYROXINE SODIUM 112 MCG TAB PO SCH (05:39)
[2017-05-04] MEDS: MORPHINE SULFATE 4 MG/ML INJ IV PUSH PRN ×4 (05:42→23:32)
[2017-05-04] MEDS: INSULIN ASPART SUPPLEMENTAL SCALE SQ SCH ×4 (06:15→21:00)
--- NOTE | 2017-05-04 08:02 | HHI.PR ---
Subjective Remarks Patient seen and examined this morning. His vitals are stable and he's afebrile. He endorses some lower abdominal pain. Is passing flatus but no bowel movement. Tolerating his liquid diet. Asked if he can have some Ativan because he is "bored". Denies chest pain or difficulty breathing. Objective Vital Signs Date Time Temp Pulse Resp B/P Pulse Ox O2 Delivery O2 Flow Rate FiO2 05/04/17 04:00 98.9 61 18 139/64 99 05/03/17 20:00 97.6 64 18 105/50 97 05/03/17 16:19 65 05/03/17 12:00 95 05/03/17 09:53 99.0 75 17 144/66 98 I/O 05/03/17 05/03/17 05/03/17 05/04/17 05/04/17 05/04/17 07:00 15:00 23:00 07:00 15:00 23:00 Intake Total 720 ml Output Total 650 ml 650 ml Balance -650 ml 720 ml -650 ml Intake Oral 720 ml Output Urine Total 650 ml 650 ml # Voids 5 Result Diagram: 05/02/17 1903 05/01/17 1000 Imaging Last Impressions Head CT 05/01/17 0950 Signed Impressions: Service Date/Time: Monday, May 01, 2017 12:36 - CONCLUSION: 1. No acute intracranial abnormality. 2. Areas of encephalomalacia from prior insults at the right frontal and parietal lobes. 3. Sinus disease. Jenaro Schroeder MD Chest X-Ray 05/01/17 0950 Signed Impressions: Service Date/Time: Monday, May 01, 2017 10:09 - CONCLUSION: 1. Negative portable chest. Newton Harvey MD Abdomen/Pelvis CT 05/01/17 0000 Signed Impressions: Service Date/Time: Monday, May 01, 2017 15:32 - CONCLUSION: 1. Colonic diverticulosis. No evidence of acute diverticulitis. 2. Moderately distended urinary bladder. 3. Appendix within normal limits. 4. Possible early findings of cirrhosis. 5. Mild left lobe intrahepatic biliary ductal dilatation versus periportal edema. Surinder Cisneros MD Objective Remarks GENERAL: This is a well-nourished, well-developed patient, in no apparent distress. Appears pale. CARDIOVASCULAR: Regular rate and rhythm without murmurs RESPIRATORY: Clear to auscultation. Breath sounds equal bilaterally. No wheezes GASTROINTESTINAL: Abdomen soft, non-tender, nondistended. some discomfort w deep palpation MUSCULOSKELETAL: Extremities without edema. NEUROLOGICAL: Awake and alert. Motor and sensory grossly within normal limits. Five out of 5 muscle strength in all muscle groups. Normal speech. A/P Problem List: (1) Symptomatic anemia ICD Code: D64.9 (2) Diabetes mellitus, type 2 ICD Code: E11.9 (3) Ataxia ICD Code: R27.0 Assessment and Plan Symptomatic anemia Microcytic hypochromic anemia Anemia due to blood loss Transfuse 2 units packed red blood cell on 05/01 and serial H&H check Hb today 7.2, will transfuse 1 unit 05/04. Recheck H/H tomorrow. 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 on PPI 40 mg IV every 12 hours iron level and iron sat low. TIBC normal. Ataxia Head CT shows no acute anomaly. PT recommends home health PT Diabetes type 2 on insulin sliding scale medium and hold home medications Hypertension on outpatient medications including Norvasc Hypothyroidism, anxiety/depression/diabetic neuropathy and other chronic medical conditions on outpatient medications DVT prophylaxis: Chemical anti-prophylactic contraindicated due to GI bleed, bilateral SCDs GI prophylaxis: PPI Discharge Planning d/c tommorrow if Hb remains stable Melva Canales MD R3 May 04, 2017 08:02
--- NOTE | 2017-05-04 08:08 | HHI.DS ---
Discharge Summary Admission Date May 01, 2017 at 12:31 Discharge Date: May 04, 2017 Admitting Diagnosis Symptomatic anemia [facility] GI CBC/BMP: 05/02/17 1903 05/01/17 1000 Significant Findings Laboratory Tests Test 05/01/17 05/01/17 05/02/17 05/02/17 10:00 19:33 07:48 19:03 White Blood Count 3.2 TH/MM3 (4.0-11.0) Red Blood Count 3.24 MIL/MM3 (4.50-5.90) Hemoglobin 6.4 GM/DL 8.3 GM/DL 8.1 GM/DL 8.2 GM/DL (13.0-17.0) (13.0-17.0) (13.0-17.0) (13.0-17.0) Hematocrit 20.2 % 26.3 % 26.8 % 26.3 % (39.0-51.0) (39.0-51.0) (39.0-51.0) (39.0-51.0) Mean Corpuscular Volume 62.4 FL (80.0-100.0) Mean Corpuscular Hemoglobin 19.6 PG (27.0-34.0) Mean Corpuscular Hemoglobin 31.4 % Concent (32.0-36.0) Red Cell Distribution Width 22.3 % (11.6-17.2) Monocytes (%) (Auto) 8.6 % (0.0-8.0) Eosinophils (%) (Auto) 5.5 % (0.0-4.0) Basophils (%) (Auto) 2.1 % (0.0-2.0) Neutrophils # (Auto) 1.7 TH/MM3 (1.8-7.7) Activated Partial 22.9 SEC Thromboplast Time (24.3-30.1) Sodium Level 135 MEQ/L (136-145) Estimat Glomerular Filtration 85 ML/MIN (>89) Rate Random Glucose 180 MG/DL (74-106) Iron Level 10 MCG/DL (65-175) Percent Iron Saturation 3.1 % (20-50) Total Bilirubin 0.1 MG/DL (0.2-1.0) Creatine Kinase MB 46.2 NG/ML (0.5-3.6) Troponin I LESS THAN 0.02 NG/ML (0.02-0.05) Albumin 3.0 GM/DL (3.4-5.0) Hospital Course CC 6-year-old male presented to the ED as advised from his doctor at the [place] due to hemoglobin of 6 and symptomatic anemia. The patient was transfused 2 units and he was seen by GI who performed an EGD which showed multiple AV malformations, coagulation and cauterization was performed. Patient was placed on PPI. Hemoglobin remained stable. On May 04 patient had reached maximum benefit from inpatient hospitalization. He was discharged home with home health per recommendations of PT. Pt Condition on Discharge: Stable Discharge Disposition: Disch w/ Home Health Serv Discharge Instructions Follow up Referrals: Gastroenterology - 2 Weeks with Patricia Curry MD PCP Follow-up - 2 Weeks Continued Medications: Amlodipine (Amlodipine) 5 Mg Tab 5 MG PO DAILY Blood Pressure Management #30 Ref 0 TAB Cyanocobalamin (B-12) 1,000 Mcg Subl 1000 MCG SL DAILY Nutritional Supplement Ref 0 TAB.SL Docusate Sodium (Docusate Sodium) 100 Mg Cap 100 MG PO BID PRN CONSTIPATION #60 Ref 0 CAP Fluticasone Nasal [place] (Fluticasone Nasal [place]) 50 Mcg/Act Naspr 50 MCG EACH NARE BID 50 mcg/spray Allergy Management #1 Ref 0 BOTTLE Gabapentin (Gabapentin) 600 Mg Tab 600 MG PO TID #90 Ref 0 TAB Hydroxyzine HCl (Hydroxyzine HCl) 50 Mg Tab 50 MG PO HS Ref 0 TAB Insulin Aspart Inj (Novolog Flexpen Inj) 300 Unit/3 Ml Pen 1 UNITS SQ Blood Sugar Management #1 Ref 0 PEN Insulin Glargine Inj (Lantus Solostar Pen Inj) 300 Unit/3 Ml Pen 1 UNITS SQ Blood Sugar Management Ref 0 PEN Levothyroxine (Levothyroxine) 137 Mcg Tab 137 MCG PO DAILY Thyroid #30 Ref 0 TAB Lisinopril (Lisinopril) 20 Mg Tab 20 MG PO DAILY #30 Ref 0 TAB Loratadine (Allergy Relief) 10 Mg Tab 10 MG PO DAILY TAB Omeprazole (Omeprazole) 20 Mg Tab 20 MG PO DAILY #30 Ref 0 TAB Sertraline HCl (Bulk) (Sertraline HCl) 1 Pow Pow 100 MG PO DAILY PRN ANXIETY Sildenafil Citrate (Bulk) (Sildenafil Citrate) 1 Pow Pow 100 MG PO Sirolimus (Sirolimus) 2 Mg Tab 2 MG PO DAILY Immunosuppression #30 Ref 0 TAB Sucralfate (Sucralfate) 1 Pow Pow 500 MG PO Terazosin (Terazosin) 2 Mg Cap 2 MG PO HS #30 Ref 0 CAP Trazodone HCl (Trazodone HCl) 150 Mg Tablet 100 MG PO HS Melva Canales MD R3 May 04, 2017 08:08
[2017-05-04] MEDS ORDERED: PROT40TA PO (08:09)
[2017-05-04] MEDS: GABAPENTIN 300 MG CAP PO SCH ×3 (08:40→17:19)
[2017-05-04] MEDS: POLYETHYLENE GLYCOL 17 GM PKG PO SCH (08:40)
[2017-05-04] MEDS: SODIUM CHLORIDE 0.9% FLUSH 10 ML FLUSH IV FLUSH SCH ×2 (08:40→21:00)
[2017-05-04 08:52] LABS: HEMATOCRIT 23.4 % (39.0-51.0)
[2017-05-04 08:57] LABS: REVIEW FLAG FINAL
[2017-05-04] MEDS ORDERED: SODIUM CHLOR 0.9% 250 ML INJ 250 ML IV ONE (11:30)
[2017-05-04] MEDS: hydrOXYzine HCL 50 MG TAB PO SCH (21:01)
[2017-05-04] MEDS: traZODone HCL 100 MG TAB PO SCH (21:01)
[2017-05-04] MEDS: TERAZOSIN HCL 1 MG CAP PO SCH (21:01)
[2017-05-04] MEDS: SERTRALINE HCL 100 MG TAB PO PRN (21:06)
[2017-05-05] VITALS (11 sets, daily range): BP systolic 113–168; BP diastolic 56–77; PULSE 62–69; RESP 16–19; TEMP 97–98.3; O2SAT 94–98
[2017-05-05] MEDS: ACETAMINOPHEN/HYDROcodone 325 MG/7.5 MG TAB PO PRN ×4 (04:25→21:25)
[2017-05-05] MEDS: LEVOTHYROXINE SODIUM 25 MCG TAB PO SCH (04:25)
[2017-05-05] MEDS: LEVOTHYROXINE SODIUM 112 MCG TAB PO SCH (04:25)
[2017-05-05] MEDS: INSULIN ASPART SUPPLEMENTAL SCALE SQ SCH ×4 (07:00→21:00)
[2017-05-05] MEDS: GABAPENTIN 300 MG CAP PO SCH ×3 (08:57→17:28)
[2017-05-05] MEDS: POLYETHYLENE GLYCOL 17 GM PKG PO SCH (08:57)
[2017-05-05] MEDS: SODIUM CHLORIDE 0.9% FLUSH 10 ML FLUSH IV FLUSH SCH ×2 (08:57→21:00)
[2017-05-05] MEDS: MORPHINE SULFATE 4 MG/ML INJ IV PUSH PRN ×3 (08:57→21:36)
--- NOTE | 2017-05-05 11:04 | HHI.PR ---
Subjective Remarks patient no complains of abdoinal pain, nausea or vomiting pale, feels weak and tired but stronger compared to admission Objective Vitals Vital Signs Date Time Temp Pulse Resp B/P Pulse Ox O2 Delivery O2 Flow Rate FiO2 05/05/17 09:43 65 05/05/17 08:10 97.2 62 17 113/56 95 05/05/17 06:00 97.4 67 18 168/77 97 05/05/17 00:00 98.1 69 19 143/65 96 05/04/17 20:30 98.1 72 18 156/70 98 05/04/17 19:00 73 05/04/17 16:00 96.8 61 17 128/57 99 05/04/17 15:50 97.0 69 17 136/74 98 05/04/17 15:35 96.6 66 18 125/58 98 05/04/17 15:20 96.8 61 17 128/57 99 I/O 05/04/17 05/04/17 05/04/17 05/05/17 05/05/17 05/05/17 07:00 15:00 23:00 07:00 15:00 23:00 Intake Total 1000 ml 1000 ml Output Total 650 ml 0 ml Balance -650 ml 0 ml 1000 ml 1000 ml Intake Oral 1000 ml 1000 ml Output Urine Total 650 ml 0 ml # Voids 1 1 3 # Bowel Movements 0 0 Result Diagram: 05/04/17 0831 05/01/17 1000 Imaging Last Impressions Head CT 05/01/17 0950 Signed Impressions: Service Date/Time: Monday, May 01, 2017 12:36 - CONCLUSION: 1. No acute intracranial abnormality. 2. Areas of encephalomalacia from prior insults at the right frontal and parietal lobes. 3. Sinus disease. Jenaro Schroeder MD Chest X-Ray 05/01/17 0950 Signed Impressions: Service Date/Time: Monday, May 01, 2017 10:09 - CONCLUSION: 1. Negative portable chest. Newton Harvey MD Abdomen/Pelvis CT 05/01/17 0000 Signed Impressions: Service Date/Time: Monday, May 01, 2017 15:32 - CONCLUSION: 1. Colonic diverticulosis. No evidence of acute diverticulitis. 2. Moderately distended urinary bladder. 3. Appendix within normal limits. 4. Possible early findings of cirrhosis. 5. Mild left lobe intrahepatic biliary ductal dilatation versus periportal edema. 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 A/P Problem List: (1) Symptomatic anemia ICD Code: D64.9 Status: Acute (2) Microcytic hypochromic anemia ICD Code: D50.9 Status: Acute (3) Anemia due to blood loss ICD Code: D50.0 Status: Acute (4) Ataxia ICD Code: R27.0 Status: Acute Assessment and Plan Symptomatic anemia Microcytic hypochromic anemia Anemia due to blood loss S/p EGD with argon ablation 04/03 Transfuse 2 units packed red blood cell on 05/01 and serial H&H check Hb today 7.2, will transfuse 1 unit 05/04. H and H today and transfuse if less than 8 GI following, pt on PPI 40 mg IV every 12 hours- chane to po check iron studies- IV Iron if needed advance diet Ataxia Head CT shows no acute anomaly. PT recommends home health PT Diabetes type 2 on insulin sliding scale medium and hold home medications Hypertension on outpatient medications including Norvasc Hypothyroidism, anxiety/depression/diabetic neuropathy and other chronic medical conditions on outpatient medications DVT prophylaxis: Chemical anti-prophylactic contraindicated due to GI bleed, bilateral SCDs GI prophylaxis: PPI Discharge Planning d/c today if Hb remains stable Yodit Hand MD May 05, 2017 11:04
[2017-05-05] MEDS: PANTOPRAZOLE SODIUM 40 MG VIAL IV PUSH SCH (11:27)
[2017-05-05 13:25] LABS: AUTOMATED NEUTROPHIL # 1.1 TH/MM3 (1.8-7.7); BASOPHIL % 1.5 % (0.0-2.0); EOSINOPHIL # 0.2 TH/MM3 (0-0.4); EOSINOPHIL % 7.2 % (0.0-4.0); HEMATOCRIT 24.8 % (39.0-51.0); LYMPHOCYTE # 0.7 TH/MM3 (1.0-4.8); MEAN CELL VOLUME 64.6 FL (80.0-100.0); MEAN CORPUSCULAR HEMOGLOBIN 20.3 PG (27.0-34.0); MEAN CORPUSCULAR HGB CONC 31.4 % (32.0-36.0); NEUT % 47.3 % (16.0-70.0); PLATELET COUNT 230 TH/MM3 (150-450); RED BLOOD COUNT 3.84 MIL/MM3 (4.50-5.90); RED CELL DISTRIBUTION WIDTH 25.1 % (11.6-17.2); WHITE BLOOD COUNT 2.3 TH/MM3 (4.0-11.0)
[2017-05-05 13:27] LABS: HEMO FLAGS AUTO DIFF
[2017-05-05 13:58] LABS: KERATOCYTES OCC (NORMAL); OVALOCYTES 1+ (NORMAL); SCAN/DIFF AUTO DIFF CONFIRMED
[2017-05-05] MEDS ORDERED: IRON SUCROSE INJ 200 MG in SODIUM CHLORIDE 0.9% INJ 100 ML IV ONE (14:30)
[2017-05-05] MEDS: FERROUS SULFATE 325 MG (65 MG ELEMENTAL IRON) TAB PO SCH (17:28)
[2017-05-05] MEDS: TERAZOSIN HCL 1 MG CAP PO SCH (21:25)
[2017-05-05] MEDS: hydrOXYzine HCL 50 MG TAB PO SCH (21:25)
[2017-05-05] MEDS: traZODone HCL 100 MG TAB PO SCH (21:25)
[2017-05-05] MEDS: SERTRALINE HCL 100 MG TAB PO PRN (21:25)
[2017-05-06] MEDS: PANTOPRAZOLE SODIUM 40 MG VIAL IV PUSH SCH (02:17)
[2017-05-06 06:00] VITALS: BP 140/60; PULSE 68; RESP 19; TEMP 97.7; O2SAT 96
[2017-05-06] MEDS: LEVOTHYROXINE SODIUM 25 MCG TAB PO SCH (06:23)
[2017-05-06] MEDS: LEVOTHYROXINE SODIUM 112 MCG TAB PO SCH (06:23)
[2017-05-06] MEDS: INSULIN ASPART SUPPLEMENTAL SCALE SQ SCH ×2 (06:36→11:44)
[2017-05-06 08:00] VITALS: BP 141/66; PULSE 63; RESP 17; TEMP 98.1; O2SAT 96
[2017-05-06 08:41] VITALS: PULSE 61
[2017-05-06] MEDS: POLYETHYLENE GLYCOL 17 GM PKG PO SCH (08:56)
[2017-05-06] MEDS: SODIUM CHLORIDE 0.9% FLUSH 10 ML FLUSH IV FLUSH SCH (08:57)
[2017-05-06] MEDS: GABAPENTIN 300 MG CAP PO SCH ×2 (08:57→13:00)
[2017-05-06] MEDS: ACETAMINOPHEN/HYDROcodone 325 MG/7.5 MG TAB PO PRN (08:59)
[2017-05-06] MEDS ORDERED: MORPHINE SULFATE 4 MG/ML INJ IV PUSH PRN (10:30)
--- NOTE | 2017-05-06 10:58 | HHI.PR ---
Subjective Remarks no complains no melena or heamtochezia feels "strong" Objective Vitals Vital Signs Date Time Temp Pulse Resp B/P Pulse Ox O2 Delivery O2 Flow Rate FiO2 05/06/17 08:55 21 05/06/17 08:41 61 05/06/17 08:00 98.1 63 17 141/66 96 05/06/17 06:00 97.7 68 19 140/60 96 05/05/17 21:30 98.3 64 17 143/61 94 05/05/17 19:00 68 05/05/17 17:47 97.9 64 17 149/73 98 05/05/17 17:33 97.0 68 16 146/71 96 05/05/17 17:14 97.4 64 16 151/64 96 05/05/17 16:09 97.7 62 18 122/56 96 05/05/17 12:12 97.0 68 18 149/64 95 I/O 05/05/17 05/05/17 05/05/17 05/06/17 05/06/17 05/06/17 07:00 15:00 23:00 07:00 15:00 23:00 Intake Total 1000 ml 900 ml 1500 ml Balance 1000 ml 900 ml 1500 ml Intake Oral 1000 ml 900 ml 1500 ml # Voids 3 0 3 # Bowel Movements 0 0 0 Result Diagram: 05/05/17 1302 Imaging Last Impressions Head CT 05/01/17 0950 Signed Impressions: Service Date/Time: Monday, May 01, 2017 12:36 - CONCLUSION: 1. No acute intracranial abnormality. 2. Areas of encephalomalacia from prior insults at the right frontal and parietal lobes. 3. Sinus disease. Jenaro Schroeder MD Chest X-Ray 05/01/17 0950 Signed Impressions: Service Date/Time: Monday, May 01, 2017 10:09 - CONCLUSION: 1. Negative portable chest. Newton Harvey MD Abdomen/Pelvis CT 05/01/17 0000 Signed Impressions: Service Date/Time: Monday, May 01, 2017 15:32 - CONCLUSION: 1. Colonic diverticulosis. No evidence of acute diverticulitis. 2. Moderately distended urinary bladder. 3. Appendix within normal limits. 4. Possible early findings of cirrhosis. 5. Mild left lobe intrahepatic biliary ductal dilatation versus periportal edema. 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 A/P Problem List: (1) Symptomatic anemia ICD Code: D64.9 Status: Acute (2) Microcytic hypochromic anemia ICD Code: D50.9 Status: Acute (3) Anemia due to blood loss ICD Code: D50.0 Status: Acute (4) Ataxia ICD Code: R27.0 Status: Acute Assessment and Plan Symptomatic anemia Microcytic hypochromic anemia Anemia due to blood loss Iron deficiency S/p EGD with argon ablation / iron sulfate 325 mg po bid. S/p IV Iron d/w him- [facility] - [facility]- appt set up this 7 informed him of what was done here Ataxia- steady Head CT shows no acute anomaly. PT daily- CM arrange for homehealth PT/nursing Diabetes type 2 on insulin sliding scale medium resume home meds on discharge patient knowledgeabe about his medications and symptoms Hypertension on outpatient medications including Norvasc Hypothyroidism, anxiety/depression/diabetic neuropathy and other chronic medical conditions OP ff up with [facility]- [facility] with repeat CBC OP ff up with GI DVT prophylaxis: Chemical anti-prophylactic contraindicated due to GI bleed, bilateral SCDs GI prophylaxis: PPI advise to return to ER if develops hematemesis, melena , GIB r Yodit Nicole MD May 06, 2017 10:58
[2017-05-06 11:09] LABS: HEMATOCRIT 29.7 % (39.0-51.0)
[2017-05-06] MEDS ORDERED: ACETAMINOPHEN/HYDROcodone 325 MG/5 MG TAB PO PRN (12:00)
[2017-05-06 12:29] VITALS: BP 146/62; PULSE 69; RESP 18; TEMP 97.2; O2SAT 95
[2017-05-06] MEDS ORDERED: PANT40TA3 PO (12:29)
[2017-05-06] MEDS ORDERED: AMLO10 PO (12:29)
[2017-05-06] MEDS ORDERED: FERR325T20 PO (12:29)
--- NOTE | 2017-05-06 12:30 | HHI.DS ---
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 Brief History - From Admission 66-year-old male with a history of diabetes type 2, hepatitis C, anemia requiring frequent blood transfusions was sent to the ED by his PCP at the [facility] for evaluation of abnormal lab including H&H 6.7/22.5. He states, over the past 4 days he has been feeling fatigued lately with increasing somnolence, lethargy and very poor balance. He currently admits of diarrhea 2 days described as dark and patient was found to have melena on Hemoccult test in the ED. Patient states he usually gets blood transfusion every 7 weeks. He states , he had a recent benign colonoscopy. He denies any hematuria, hemoptysis or hematochezia. Although patient complains of abdominal pain and he denies any chest pain or significant shortness of breath. CBC/BMP: 05/06/17 1042 Significant Findings Laboratory Tests Test 05/04/17 05/05/17 05/06/17 08:31 13:02 10:42 Hemoglobin 7.2 GM/DL 7.8 GM/DL 9.1 GM/DL (13.0-17.0) (13.0-17.0) (13.0-17.0) Hematocrit 23.4 % 24.8 % 29.7 % (39.0-51.0) (39.0-51.0) (39.0-51.0) White Blood Count 2.3 TH/MM3 (4.0-11.0) Red Blood Count 3.84 MIL/MM3 (4.50-5.90) Mean Corpuscular Volume 64.6 FL (80.0-100.0) Mean Corpuscular Hemoglobin 20.3 PG (27.0-34.0) Mean Corpuscular Hemoglobin 31.4 % Concent (32.0-36.0) Red Cell Distribution Width 25.1 % (11.6-17.2) Monocytes (%) (Auto) 13.0 % (0.0-8.0) Eosinophils (%) (Auto) 7.2 % (0.0-4.0) Neutrophils # (Auto) 1.1 TH/MM3 (1.8-7.7) Lymphocytes # (Auto) 0.7 TH/MM3 (1.0-4.8) Ovalocytes 1+ (NORMAL) Ferritin 15 NG/ML (26-388) Imaging Last Impressions Head CT 05/01/17 0950 Signed Impressions: Service Date/Time: Monday, May 01, 2017 12:36 - CONCLUSION: 1. No acute intracranial abnormality. 2. Areas of encephalomalacia from prior insults at the right frontal and parietal lobes. 3. Sinus disease. Jenaro Schroeder MD Chest X-Ray 05/01/17 0950 Signed Impressions: Service Date/Time: Monday, May 01, 2017 10:09 - CONCLUSION: 1. Negative portable chest. Newton Harvey MD Abdomen/Pelvis CT 05/01/17 0000 Signed Impressions: Service Date/Time: Monday, May 01, 2017 15:32 - CONCLUSION: 1. Colonic diverticulosis. No evidence of acute diverticulitis. 2. Moderately distended urinary bladder. 3. Appendix within normal limits. 4. Possible early findings of cirrhosis. 5. Mild left lobe intrahepatic biliary ductal dilatation versus periportal edema. Surinder Cisneros MD PE at Discharge awake and alert, NAD anicteric lungs clear regular rhythm abdomen soft, nontender extremities no edema Pt update on day of discharge awake and alert, taking po very well, no pain no signs of active bleed up and ambulated steadily, no ataxia Hospital Course Symptomatic anemia Microcytic hypochromic anemia Anemia due to blood loss Iron deficiency S/p EGD with argon ablation 04/03 iron sulfate 325 mg po bid. S/p IV Iron d/w him- [facility] - [facility]- appt set up this 7 informed him of what was done here Ataxia- steady Head CT shows no acute anomaly. PT daily- CM arrange for homehealth PT/nursing Diabetes type 2 on insulin sliding scale medium resume home meds on discharge patient knowledgeabe about his medications and symptoms Hypertension on outpatient medications including Norvasc Hypothyroidism, anxiety/depression/diabetic neuropathy and other chronic medical conditions OP ff up with [facility] with [facility] CBC OP ff up with GI DVT prophylaxis: Chemical anti-prophylactic contraindicated due to GI bleed, bilateral SCDs GI prophylaxis: PPI advise to return to ER if develops hematemesis, melena , GIB r dizziness Pt Condition on Discharge: Stable Discharge Disposition: Disch w/ Home Health Serv Discharge Time: <= 30 minutes Discharge Instructions DIET: Follow Instructions for: Heart Healthy Diet, Diabetic Diet Speech Therapy-Diet Recommends: Regular Activities you can perform: Weight Bearing as Kiya Activities to Avoid: Prolonged Standing, Strenuous Activity Follow up Referrals: Gastroenterology - 2 Weeks with Patricia Curry MD PCP Follow-up - 2 Weeks New Medications: Pantoprazole (Protonix) 40 Mg Tab 40 MG PO DAILY Reflux #30 Ref 0 TAB Amlodipine (Norvasc) 10 Mg Tab 10 MG PO DAILY HTN Days 30 TAB Ferrous Sulfate (Ferosul) 325 Mg Tablet 325 MG PO BID@12,17 FEanemia #60 Ref 1 TAB Pantoprazole (Pantoprazole) 40 Mg Tab 40 MG PO DAILY GIB Days 30 Ref 1 TAB Continued Medications: Amlodipine (Amlodipine) 5 Mg Tab 5 MG PO DAILY Blood Pressure Management #30 Ref 0 TAB Cyanocobalamin (B-12) 1,000 Mcg Subl 1000 MCG SL DAILY Nutritional Supplement Ref 0 TAB.SL Docusate Sodium (Docusate Sodium) 100 Mg Cap 100 MG PO BID PRN CONSTIPATION #60 Ref 0 CAP Fluticasone Nasal [place] (Fluticasone Nasal [place]) 50 Mcg/Act Naspr 50 MCG EACH NARE BID 50 mcg/spray Allergy Management #1 Ref 0 BOTTLE Gabapentin (Gabapentin) 600 Mg Tab 600 MG PO TID #90 Ref 0 TAB Hydroxyzine HCl (Hydroxyzine HCl) 50 Mg Tab 50 MG PO HS Ref 0 TAB Insulin Aspart Inj (Novolog Flexpen Inj) 300 Unit/3 Ml Pen 1 UNITS SQ Blood Sugar Management #1 Ref 0 PEN Insulin Glargine Inj (Lantus Solostar Pen Inj) 300 Unit/3 Ml Pen 1 UNITS SQ Blood Sugar Management Ref 0 PEN Levothyroxine (Levothyroxine) 137 Mcg Tab 137 MCG PO DAILY Thyroid #30 Ref 0 TAB Lisinopril (Lisinopril) 20 Mg Tab 20 MG PO DAILY #30 Ref 0 TAB Loratadine (Allergy Relief) 10 Mg Tab 10 MG PO DAILY TAB Omeprazole (Omeprazole) 20 Mg Tab 20 MG PO DAILY #30 Ref 0 TAB Sertraline HCl (Bulk) (Sertraline HCl) 1 Pow Pow 100 MG PO DAILY PRN ANXIETY Sildenafil Citrate (Bulk) (Sildenafil Citrate) 1 Pow Pow 100 MG PO Sirolimus (Sirolimus) 2 Mg Tab 2 MG PO DAILY Immunosuppression #30 Ref 0 TAB Sucralfate (Sucralfate) 1 Pow Pow 500 MG PO Terazosin (Terazosin) 2 Mg Cap 2 MG PO HS #30 Ref 0 CAP Trazodone HCl (Trazodone HCl) 150 Mg Tablet 100 MG PO HS Yodit Hand MD May 06, 2017 12:30
[2017-05-06] MEDS ORDERED: HYDR-3516 PO (12:32)
[2017-05-06] MEDS: FERROUS SULFATE 325 MG (65 MG ELEMENTAL IRON) TAB PO SCH (13:00)
[2017-05-07] MEDS ORDERED: PANTOPRAZOLE SOD 40 MG DELAYED RELEASE TAB PO SCH (09:00)
== END 2017-05-06 14:32 | disposition home health service (06) | DRG 812 ==
LOC: NEPE 09:20 → NEDA 12:31 → N05B 16:12
PROVIDERS: ADMIT Internal Medicine; ATTEND Internal Medicine
PROC: 30233N1 Transfusion of Nonautologous Red Blood Cells into Peripheral Vein, Percutaneous Approach (ICD-10-PCS; 2017-05-01)
PROC: 0D568ZZ Destruction of Stomach, Via Natural or Artificial Opening Endoscopic (ICD-10-PCS; 2017-05-02)
PROC: 0D598ZZ Destruction of Duodenum, Via Natural or Artificial Opening Endoscopic (ICD-10-PCS; principal; 2017-05-02 10:55)
DX: D50.0 Iron deficiency anemia secondary to blood loss (chronic) (principal); E11.42 Type 2 diabetes mellitus with diabetic polyneuropathy; K70.30 Alcoholic cirrhosis of liver without ascites; K92.1 Melena; K31.819 Angiodysplasia of stomach and duodenum without bleeding; I10 Essential (primary) hypertension; R27.0 Ataxia, unspecified; E03.9 Hypothyroidism, unspecified; F41.9 Anxiety disorder, unspecified; F32.9 Major depressive disorder, single episode, unspecified; Z79.4 Long term (current) use of insulin; E78.00 Pure hypercholesterolemia, unspecified; F10.21 Alcohol dependence, in remission; G47.33 Obstructive sleep apnea (adult) (pediatric); Z86.73 Personal history of transient ischemic attack (TIA), and cerebral infarction without residual deficits; B19.20 Unspecified viral hepatitis C without hepatic coma
CPT/HCPCS: 36430; 70450; 71010; 74177; 76937; 80053; 82550; 82552; 82728; 82948; 83540; 83550; 83690; 83735; 83880; 84484; 85014; 85018; 85025; 85610; 85730; 86850; 86900; 86901; 86920; 93005; 96361; 96374; C9113; J1756; J1815; J2060; J2270; J7030; J7050; P9016; Q9967